=== PATIENT | female | born 1995 | race Caucasian/White ===

== ENCOUNTER 2022-04-08 15:35 | Emergency (ER) | payer MEDICAID ==
[~2022-04-08] VITALS: Ht 154.9 cm; Wt 52.2 kg
[2022-04-08 15:48] VITALS: BP 130/81
--- NOTE | 2022-04-08 16:30 | NUR ---
26YO FEMALE PT C/O INTERMITTENT TIGHT 9/10 CHEST PAIN AND PALPITATIONS [id number]. EPISODES LASTING <1MIN W/O RADIATION. NOTES "TINGLING AND BURNING" IN R LEG, -LOSS OF SENSATION OR NUMBING. DENIES TAKING MEDICATION , N/V/D, SOB, FEVER , CHILLS OR CHANGE IN VISION. PT AAOX4,RESPIRATIONS EVEN AND UNLABORED. HOB POSITIONED PER COMFORT. HX:MIGRAINS NKA
--- NOTE | 2022-04-08 16:58 | NUR ---
LAB AT BEDSIDE
[2022-04-08 17:39] LABS: ALBUMIN 3.7 g/dL (3.4-5.0); ANION GAP 6.3 (8-16); CARBON DIOXIDE 30.6 mmol/L (21-32); CREATININE 0.7 mg/dL (0.6-1.3); POTASSIUM 3.9 mmol/L (3.5-5.1); TOTAL BILIRUBIN 0.2 mg/dL (0.0-1.0)
[2022-04-08 17:50] LABS: BASOPHILS % (AUTO) 0.4 % (0.0-2.0); EOSINOPHILS # (AUTO) 0.2 K/uL (0-0.4); EOSINOPHILS % (AUTO) 1.4 % (0.0-4.0); HEMATOCRIT 36.7 % (36-48); HEMOGLOBIN 12.1 g/dL (12.0-16.0); LYMPHOCYTES # (AUTO) 3.6 K/uL (2.5-16.5); MEAN CORPUSCULAR HEMOGLOBIN 26 pg (27-31); MEAN CORPUSCULAR HGB CONC 33 g/dL (33-37); MEAN CORPUSCULAR VOLUME 79.9 fL (80-94); MONOCYTES # (AUTO) 0.7 K/uL (0.8-1.0); MONOCYTES % (AUTO) 6.2 % (1.7-9.3); NEUTROPHILS # (AUTO) 6.2 K/uL (1.8-7.7); PLATELET COUNT (AUTO) 214 K/uL (140-450); RED BLOOD CELL COUNT(AUTO) 4.59 MIL/uL (4.20-5.40); WHITE BLOOD COUNT (AUTO) 10.7 K/uL (4.8-10.8)
[2022-04-08 18:18] VITALS: BP 122/71
--- NOTE | 2022-04-08 18:18 | NUR ---
Patient discharged with v/s stable. Written and verbal after care instructions FOR PALPITATIONS given and explained. Patient verbalized understanding. Ambulatory with steady gait. All questions addressed prior to discharge. Advised to follow up with PMD. WORK NOTE PROVIDED
== END 2022-04-08 18:18 | disposition home or self-care (01) ==
LOC: MED 15:35
DX: R00.2 Palpitations (principal)
CPT/HCPCS: 36415; 80053; 81025; 85025; 93005; 99284